=== PATIENT | male | born 1940 | race Caucasian/White ===

== ENCOUNTER 2017-09-05 17:39 | Observation (INO) | payer MEDICARE, OTHER ==
[~2017-09-05] VITALS: Ht 186.7 cm; Wt 90.0 kg
[~2017-09-05 17:39] MED LIST: ALAV10TA10 PO; ALPR0.5T99 PO; AMIO200T PO; ASPI81 PO; EZET10 PO; FERR324T4 PO; FLON0.053; LORT5TAB PO; METO50TA PO; NYST100024 EX; RANI150 PO; TRIA.1%T MT
[2017-09-05 17:45] VITALS: BP 156/89; PULSE 79; RESP 18; TEMP 97.5; O2SAT 98
[2017-09-05 18:02] VITALS: BP 143/78; PULSE 65; RESP 16; O2SAT 98
--- NOTE | 2017-09-05 18:13 | PD ---
HPI Chief Complaint: Chest Pain Time Seen by Provider: 17:52 Travel History International Travel<30 days: No Contact w/Intl Traveler<30days: No Traveled to known affect area: No History of Present Illness HPI This patient had some atypical chest sensations over the last couple of days. Location is left upper chest. Duration is about 30 seconds. Symptoms are not exertional. He feels a sort of tingling and mild pressure there. Symptoms resolved spontaneously with no alleviating factors. No exacerbating factors. He has history of bypass grafting. His last stress test was 5 years ago. Symptom severity was mild to moderate. He is currently symptom-free. He takes a daily aspirin and took one today. PFSH Past Medical History Arthritis: Yes (LOW BACK) Asthma: No Autoimmune Disease: No Blood Disorders: No Anxiety: Yes Depression: Yes Heart Rhythm Problems: Yes Cancer: Yes (COLORECTAL) Cardiac Catheterization: Yes (STENTS X3 IN 2003) Cardiovascular Problems: Yes (CATH/STENTS) High Cholesterol: Yes Chemotherapy: No Chest Pain: Yes Congestive Heart Failure: No COPD: No Cerebrovascular Accident: No Diabetes: No Endocrine: No GERD: Yes Genitourinary: No Hiatal Hernia: No Hypertension: Yes Immune Disorder: No Kidney Stones: No Musculoskeletal: Yes Neurologic: No Psychiatric: No Reproductive: No Respiratory: No Migraines: No Radiation Therapy: No Renal Failure: No Seizures: No Sickle Cell Disease: No Sleep Apnea: No Thyroid Disease: No Ulcer: No Past Surgical History Abdominal Surgery: No Arteriovenous Shunt: No Cardiac Surgery: No Ear Surgery: No Endocrine Surgery: No Eye Surgery: No Genitourinary Surgery: No Gynecologic Surgery: No Insulin Pump: No Oral Surgery: No Thoracic Surgery: No Other Surgery: Yes Social History Alcohol Use: No Tobacco Use: No Substance Use: No Allergies-Medications (Allergen,Severity, Reaction): Coded Allergies: lovastatin (Unverified Allergy, Severe, STATINS, 01/17/17) Reported Meds & Prescriptions Reported Meds & Active Scripts Active Reported Ferrous Sulfate 325 Mg Tab 325 Mg PO BIDPC Aspirin 81 Mg Tab 81 Mg PO DAILY Amiodarone Hcl (Amiodarone HCl) 200 Mg Tab 200 Mg PO Triamcinolone Acetonide 0.1 % Pst 0.1 % MT DAILY Nystatin 100 000 Pow 100,000 Mg EX Lopressor (Metoprolol Tartrate) 50 Mg Tab 50 Mg PO BID Zantac (Ranitidine HCl) 150 Mg Tab 150 Mg PO BID Alavert (Loratadine) 10 Mg Tab 10 Mg PO DAILY Lortab 5/500 (Acetaminophen/Hydrocodone Bitart) 5 Mg/500 Mg Tab 1 Tab PO Q4HPRN FOR PAIN Flonase (Fluticasone Propionate) 0.05 % Naspr 2 Spr NA DAILY 2 SPRAYS EACH NOSTRIL Zetia (Ezetimibe) 10 Mg Tab 10 Mg PO DAILY Xanax (Alprazolam) 0.5 Mg Tab 0.5 Mg PO TIDPRN Review of Systems General / Constitutional: No: Fever Eyes: No: Visual changes HENT: No: Headaches Cardiovascular: Positive: Chest Pain or Discomfort Respiratory: No: Shortness of Breath Gastrointestinal: No: Abdominal Pain Genitourinary: No: Dysuria Musculoskeletal: No: Pain Skin: No Rash Neurologic: No: Weakness Psychiatric: No: Depression Endocrine: No: Polydipsia Hematologic/Lymphatic: No: Easy Bruising Physical Exam Narrative GENERAL: Well-nourished, well-developed patient in no apparent distress. SKIN: Focused skin assessment reveals no rash and nodules. Skin is Warm and dry. HEAD: Atraumatic. Normocephalic. EYES: Pupils equal and round. No scleral icterus. No injection or drainage. ENT: No nasal bleeding or discharge. Mucous membranes pink and moist. NECK: Trachea midline. No JVD. CARDIOVASCULAR: Regular rate and rhythm. No murmur appreciated. RESPIRATORY: No accessory muscle use. Clear to auscultation. Breath sounds equal bilaterally. GASTROINTESTINAL: Abdomen soft, non-tender, nondistended. Hepatic and splenic margins not palpable. MUSCULOSKELETAL: No obvious deformities. No clubbing. No cyanosis. No edema. NEUROLOGICAL: Awake and alert. No obvious cranial nerve deficits. Motor grossly within normal limits. Normal speech. PSYCHIATRIC: Appropriate mood and affect; insight and judgment normal. Data Data Last Documented VS Vital Signs Date Time Temp Pulse Resp B/P (MAP) Pulse Ox O2 Delivery O2 Flow Rate FiO2 09/05/17 18:02 79 98 Nasal Cannula 09/05/17 18:02 16 143/78 (99) 09/05/17 17:45 97.5 Orders Orders Electrocardiogram (09/05/17 18:07) Basic Metabolic Panel (Bmp) (09/05/17 18:07) Ckmb (Isoenzyme) Profile (09/05/17 18:07) Complete Blood Count With Diff (09/05/17 18:07) Prothrombin Time / Inr (Pt) (09/05/17 18:07) Act Partial Throm Time (Ptt) (09/05/17 18:07) Troponin I (09/05/17 18:07) Chest, Single Ap (09/05/17 18:07) Ecg Monitoring (09/05/17 18:07) Iv Access Insert/Monitor (09/05/17 18:07) Oximetry (09/05/17 18:07) Sodium Chloride 0.9% Flush (Ns Flush) (09/05/17 18:15) Labs Laboratory Tests Test 09/05/17 18:49 MDM Medical Decision Making Medical Screen Exam Complete: Yes Emergency Medical Condition: Yes Medical Record Reviewed: Yes Differential Diagnosis Angina, ACS, musculoskeletal pain Narrative Course I have reviewed the patient's electronic medical record. I have ordered a chest pain workup. Everything is pending at my shift end and the case will be checked out to evening physician to assist with disposition. Christian Denney MD Sep 05, 2017 18:13
[2017-09-05] MEDS ORDERED: SODIUM CHLORIDE 0.9% FLUSH 10 ML FLUSH IVF PRN (18:15)
[2017-09-05 18:58] LABS: AUTOMATED NEUTROPHIL # 3.9 TH/MM3 (1.8-7.7); BASOPHIL % 0.6 % (0.0-2.0); EOSINOPHIL # 0.2 TH/MM3 (0-0.4); EOSINOPHIL % 2.7 % (0.0-4.0); HEMOGLOBIN 13.5 GM/DL (13.0-17.0); LYMPH % 24.8 % (9.0-44.0); LYMPHOCYTE # 1.5 TH/MM3 (1.0-4.8); MEAN CELL VOLUME 89.1 FL (80.0-100.0); MEAN CORPUSCULAR HEMOGLOBIN 30.9 PG (27.0-34.0); MEAN CORPUSCULAR HGB CONC 34.6 % (32.0-36.0); MEAN PLATELET VOLUME 8.4 FL (7.0-11.0); MONO % 7.5 % (0.0-8.0); MONOCYTE # 0.5 TH/MM3 (0-0.9); NEUT % 64.4 % (16.0-70.0); PLATELET COUNT 160 TH/MM3 (150-450); RED BLOOD COUNT 4.37 MIL/MM3 (4.50-5.90); RED CELL DISTRIBUTION WIDTH 13.3 % (11.6-17.2); WHITE BLOOD COUNT 6.1 TH/MM3 (4.0-11.0)
[2017-09-05] MEDS ORDERED: LISI-519 PO (19:00)
[2017-09-05] MEDS ORDERED: ALPR0.5T3 PO (19:00)
[2017-09-05] MEDS ORDERED: OMEP20TA93 PO (19:00)
[2017-09-05] MEDS ORDERED: METO-426 PO (19:00)
[2017-09-05] MEDS ORDERED: NEOM1SOL7 LEFT EAR (19:00)
[2017-09-05] MEDS ORDERED: VIAG25TA PO (19:00)
[2017-09-05] MEDS ORDERED: FLUO-1 PO (19:00)
[2017-09-05] MEDS ORDERED: CARB6.5S5 EACH EAR (19:00)
[2017-09-05] MEDS ORDERED: ASPI-516 CHEW (19:01)
--- NOTE | 2017-09-05 19:04 | PD ---
Data Data Last Documented VS Vital Signs Date Time Temp Pulse Resp B/P (MAP) Pulse Ox O2 Delivery O2 Flow Rate FiO2 09/05/17 19:25 98.4 68 13 121/85 (97) 96 Room Air Orders Orders Electrocardiogram (09/05/17 18:07) Basic Metabolic Panel (Bmp) (09/05/17 18:07) Ckmb (Isoenzyme) Profile (09/05/17 18:07) Complete Blood Count With Diff (09/05/17 18:07) Prothrombin Time / Inr (Pt) (09/05/17 18:07) Act Partial Throm Time (Ptt) (09/05/17 18:07) Troponin I (09/05/17 18:07) Chest, Single Ap (09/05/17 18:07) Ecg Monitoring (09/05/17 18:07) Iv Access Insert/Monitor (09/05/17 18:07) Oximetry (09/05/17 18:07) Sodium Chloride 0.9% Flush (Ns Flush) (09/05/17 18:15) Nitroglycerin 2% Oint (Nitroglycerin 2% (09/05/17 19:15) Admit Order (Ed Use Only) (09/05/17 20:09) Labs Laboratory Tests Test 09/05/17 18:49 White Blood Count 6.1 TH/MM3 Red Blood Count 4.37 MIL/MM3 Hemoglobin 13.5 GM/DL Hematocrit 39.0 % Mean Corpuscular Volume 89.1 FL Mean Corpuscular Hemoglobin 30.9 PG Mean Corpuscular Hemoglobin Concent 34.6 % Red Cell Distribution Width 13.3 % Platelet Count 160 TH/MM3 Mean Platelet Volume 8.4 FL Neutrophils (%) (Auto) 64.4 % Lymphocytes (%) (Auto) 24.8 % Monocytes (%) (Auto) 7.5 % Eosinophils (%) (Auto) 2.7 % Basophils (%) (Auto) 0.6 % Neutrophils # (Auto) 3.9 TH/MM3 Lymphocytes # (Auto) 1.5 TH/MM3 Monocytes # (Auto) 0.5 TH/MM3 Eosinophils # (Auto) 0.2 TH/MM3 Basophils # (Auto) 0.0 TH/MM3 CBC Comment DIFF FINAL Differential Comment Prothrombin Time 10.1 SEC Prothromb Time International Ratio 1.0 RATIO Activated Partial Thromboplast Time 27.2 SEC Blood Urea Nitrogen 9 MG/DL Creatinine 1.18 MG/DL Random Glucose 92 MG/DL Calcium Level 8.6 MG/DL Sodium Level 140 MEQ/L Potassium Level 4.2 MEQ/L Chloride Level 107 MEQ/L Carbon Dioxide Level 27.5 MEQ/L Anion Gap 6 MEQ/L Estimat Glomerular Filtration Rate 60 ML/MIN Total Creatine Kinase 73 U/L Troponin I LESS THAN 0.02 NG/ML [facility] Medical Record Reviewed: Yes Supervised Visit with CONSTANTINO: No Interpretation(s) Last Impressions Chest X-Ray 09/05/17 011 Signed Impressions: Service Date/Time: Tuesday, September 05, 2017 18:42 - CONCLUSION: 1. No acute findings. Minimal basilar scarring. Postoperative CABG. Silvino Felipe MD Narrative Course During the course of the patient's emergency department visit, the patient's history, examination, and differential diagnosis were reviewed with the patient. The patient was placed on a quality assurance monitor chassis with oximetry and frequent blood pressure monitoring. The patient had IV access obtained and blood work sent for analysis. The patient was initially seen by Dr. nohelia Nevarez. Please see his complete history and physical. The patient's case was checked out to me at the conclusion of his shift. He anticipated that the patient would be a candidate for admission to the chest pain center. The patient was initially provided nitroglycerin 1 inch to the chest wall. The patient's laboratory studies were reviewed and remarkable for a white count of 6.1, hemoglobin 13.5, platelets 160 with a normal differential, basic metabolic profile is unremarkable, initial set of cardiac enzymes are negative. PT PTT within normal limits. Radiology studies were reviewed and remarkable for a chest x-ray that shows no acute findings, minimal basilar scarring, postop CABG. The patient's results were discussed with the patient, including the plan of care. I explained that further testing and/ or monitoring is indicated based on the patient's history, examination, and/ or laboratory findings. Therefore, I recommended admission for additional evaluation. The patient expressed understanding and was agreeable with this plan. The patient was admitted to the hospital in stable condition and sent to a bed under the care of the chest pain center. Diagnosis Primary Impression: Chest pain, rule out acute myocardial infarction Admitting Information Admitting Physician Requests: Katelyn Diaz MD Sep 05, 2017 19:04
[2017-09-05 19:15] LABS: BICARBONATE 27.5 MEQ/L (21.0-32.0); BLOOD UREA NITROGEN 9 MG/DL (7-18); CALCIUM 8.6 MG/DL (8.5-10.1); CHLORIDE 107 MEQ/L (98-107); CREATININE 1.18 MG/DL (0.60-1.30); GLOMERULAR FILTRATION RATE 60 ML/MIN (>89); GLUCOSE,RANDOM 92 MG/DL (74-106); PROTHROMBIN TIME - PATIENT 10.1 SEC (9.8-11.6); SODIUM (NA) 140 MEQ/L (136-145)
[2017-09-05] MEDS ORDERED: NITROGLYCERIN 2% OINT 1 GM PACKET TOPICAL ONE (19:15)
[2017-09-05 19:19] LABS: TROPONIN I LESS THAN 0.02 NG/ML (0.02-0.05)
[2017-09-05 19:25] VITALS: BP 121/85; PULSE 68; RESP 13; TEMP 98.4; O2SAT 96
--- NOTE | 2017-09-05 19:40 | RADRPT ---
EXAM DATE/TIME: 09/05/2017 18:42 [facility] COMPARISON: No previous studies available for comparison. INDICATIONS : Short of breath for several days. Patient sent to the emergency with an abnormal EKG at the [facility]. MEDICAL HISTORY : Hypercholesterolemia. Hypertension Gastroesophageal reflux disease. Colonrectal cancer. SURGICAL HISTORY : CABG. Colonrectal. ENCOUNTER: Initial ACUITY: 3 days PAIN SCORE: 0/10 LOCATION: Bilateral chest FINDINGS: A single view of the chest demonstrates the lungs to be symmetrically aerated without evidence of mas s, infiltrate or effusion. The cardiomediastinal contours are unremarkable. Postoperative CABG. Osse ous structures are intact. CONCLUSION: 1. No acute findings. Minimal basilar scarring. Postoperative CABG. Silvino Felipe MD on September 05, 2017 at 19:36 Board Certified Radiologist. This report was verified electronically.
[2017-09-05] MEDS ORDERED: ACETAMINOPHEN 500 MG CPLT PO PRN (20:45)
[2017-09-05] MEDS ORDERED: SODIUM CHLORIDE 0.9% FLUSH 10 ML FLUSH IV FLUSH PRN (20:45)
[2017-09-05] MEDS: SODIUM CHLORIDE 0.9% FLUSH 10 ML FLUSH IV FLUSH SCH (22:42)
[2017-09-05 22:48] LABS: TROPONIN I LESS THAN 0.02 NG/ML (0.02-0.05)
[2017-09-05 23:06] VITALS: BP 116/68; PULSE 71; RESP 18; TEMP 98.1; O2SAT 95
[2017-09-06 01:44] VITALS: BP 104/60; PULSE 63; RESP 15; TEMP 97.5; O2SAT 95
[2017-09-06 02:23] LABS: TROPONIN I LESS THAN 0.02 NG/ML (0.02-0.05)
[2017-09-06 04:30] VITALS: PULSE 60
[2017-09-06 05:40] VITALS: BP 114/60; PULSE 65; RESP 16; TEMP 97.6; O2SAT 94
[2017-09-06 07:16] VITALS: BP 101/58; PULSE 67; RESP 16; TEMP 97.5; O2SAT 94
--- NOTE | 2017-09-06 07:52 | HHI.HP ---
HPI Primary Care Physician [facility] Chief Complaint Chest discomfort History of Present Illness 76-year-old male with history of coronary artery disease, CABG 4, statin intolerant, HLD, and hypertension presents to the emergency room as directed by his primary care physician. Onset 3 days. Location left anterior chest. Characterized as "buzzing sensation, like a TENS unit sensation." Duration 15- 30 seconds. No chest pain/pressure/discomfort. No radiation. No associated symptoms of nausea, vomiting, or diaphoresis. No known precipitating or relieving factors. Denies similar pain in the past and not at all similar to past angina before placement of cardiac stents or open heart surgery. While at his regularly scheduled appointment yesterday, he notified his PCP of above. EKG completed in office. Reportedly EKG different from previous EKG May 2017, therefore PCP at [facility] sent him to ER for further evaluation. Since open heart surgery he has not followed with a letterpress setter. Review of Systems General: No fatigue,weakness, fever, chills, recent illness, or change in appetite. Has been in his general state of health. HEENT: No RUST, no vision changes, no nasal congestion or drainage, no dysphasia CV: As stated above. Denies ever having any chest pain, pressure, or palpitations. RESP: No SOB, cough, wheeze, or recent URI. GI: No nausea, vomiting, bowel changes, diarrhea, constipation, pain, or distention. : No dysuria, urgency, frequency EXT: No lower leg edema, no paraesthesias MS: No discomfort or change in ROM. NEURO: No difficulty with balance, LOC, motor/sensory deficits PSYCH: History of depression, reports recently placed on Fluoxetine tolerating well. No current anxiety or depression. SKIN: No rashes, no concerning lesions Past Family Social History Allergies: Coded Allergies: lovastatin (Unverified Allergy, Severe, STATINS, 01/17/17) Past Medical History Coronary artery disease, colorectal cancer, hyperlipidemia, hypertension, statin intolerant, GERD, chronic back pain, depression Past Surgical History CABG 4 (2010), cholecystectomy, hernia repair (), Colon Resection Reported Medications Reported Meds & Active Scripts Active Reported Aspirin 81 Mg Chew 81 Mg CHEW DAILY Metoprolol Tartrate 75 Mg Tab 75 Mg PO DAILY Fzgcrrgo-Bgpkypwyw-WL Otic Drops 3.5-10,000-1 Mg-Units-% Soln 4 Drop LEFT EAR QID Debrox Otic Drops (Carbamide Peroxide Otic Drops) 6.5% Soln 5-10 Drop EACH EAR BID PRN up to 4 days. Alprazolam 0.5 Mg Tab 0.5 Mg PO Q8H PRN Viagra (Sildenafil Citrate) 25 Mg Tab 25 Mg PO DAILY PRN Omeprazole 20 Mg Tab 20 Mg PO DAILY Lisinopril 5 Mg Tab 5 Mg PO DAILY Prozac (Fluoxetine HCl) 10 Mg Cap 10 Mg PO DAILY Active Ordered Medications Current Medications Medications (Trade) Dose Ordered Sig/Stacia Route Start Time Stop Time Status Last Admin (NS Flush) 2 ml UNSCH PRN IVF 09/05/17 18:15 (NS Flush) 2 ml UNSCH PRN IV FLUSH 09/05/17 20:45 (NS Flush) 2 ml BID IV FLUSH 09/05/17 21:00 09/05/17 22:42 (Tylenol) 500 mg Q4H PRN PO 09/05/17 20:45 (Aspirin) 325 mg DAILY PO 09/06/17 09:00 Social History Coronary artery disease, hypertension, and hyperlipidemia. Denies diabetes. Former smoker quitting over 20 years ago. Denies any alcohol or illegal drug use. Retired. Endorses sedentary lifestyle. Past cardiac testing No cardiac testing since CABG in 2010. Does not follow with a letterpress setter. 12/04/10 CABGX4 (Dr. Wade) STRAUSS to LAD, saphenous vein graft to OM, saphenous vein graft to obtuse, saphenous vein graft to RCA 03/27/10 Lexiscan-Fixed decreased activity inferoseptal region with mild hypokinesis. No signs of reversibility to suggest ischemia on current exam. EF 60%. 2004 Cardiac catheterization x3 Cardiac stents-one placed diagonal, second placed in LAD, and 3rd unknown ([facility]) 09/04/17 Lipid Panel (reviewed from paperwork provided with patient) LDL-172, HDL 53, Triglycerides 127, Total cholesterol 237. Physical Exam Vital Signs Vital Signs Date Time Temp Pulse Resp B/P (MAP) Pulse Ox O2 Delivery O2 Flow Rate FiO2 09/06/17 07:16 97.5 67 16 101/58 (72) 94 09/06/17 05:40 97.6 65 16 114/60 (78) 94 09/06/17 04:30 60 09/06/17 03:12 21 09/06/17 01:44 97.5 63 15 104/60 (75) 95 09/05/17 23:06 98.1 71 18 116/68 (84) 95 09/05/17 19:25 98.4 68 13 121/85 (97) 96 Room Air 09/05/17 18:02 79 98 Nasal Cannula 09/05/17 18:02 65 16 143/78 (99) 98 Room Air 09/05/17 17:45 97.5 79 18 156/89 (111) 98 Physical Exam GENERAL: Alert WN, WD, NAD, pleasant, male HEAD: NC, AT EYES: Sclera clear, conjunctiva without injection ENT: Mucous membranes pink and moist NECK: Supple, no masses, trachea midline CV: RRR, without murmur, rub, gallop, no JVD, S1-S2 no S3-S4. No carotid bruits. RESP: Clear lungs throughout bilateral, no crackles, wheeze, rhonchi, symmetrical chest rise, nonlabored, able to speak in full sentences ABD: Soft, NT, ND, no masses, positive bowel tones EXT: Pulses +2-4, no dependent edema MS: Normal tone -4 extremities, no obvious deformities, full range of motion NEURO: CN II through CN XII grossly intact, motor strength 5/5 PSYCH: A+O -3, pleasant affect, appropriate speech, mood, insight and judgment SKIN: Normal turgor, normal texture, no lesions, no rashes, brisk cap refill, even hair distribution Laboratory Laboratory Tests Test 09/05/17 18:49 09/05/17 21:40 09/06/17 01:35 White Blood Count 6.1 Red Blood Count 4.37 Hemoglobin 13.5 Hematocrit 39.0 Mean Corpuscular Volume 89.1 Mean Corpuscular Hemoglobin 30.9 Mean Corpuscular Hemoglobin Concent 34.6 Red Cell Distribution Width 13.3 Platelet Count 160 Mean Platelet Volume 8.4 Neutrophils (%) (Auto) 64.4 Lymphocytes (%) (Auto) 24.8 Monocytes (%) (Auto) 7.5 Eosinophils (%) (Auto) 2.7 Basophils (%) (Auto) 0.6 Neutrophils # (Auto) 3.9 Lymphocytes # (Auto) 1.5 Monocytes # (Auto) 0.5 Eosinophils # (Auto) 0.2 Basophils # (Auto) 0.0 CBC Comment DIFF FINAL Differential Comment Prothrombin Time 10.1 Prothromb Time International Ratio 1.0 Activated Partial Thromboplast Time 27.2 Blood Urea Nitrogen 9 Creatinine 1.18 Random Glucose 92 Calcium Level 8.6 Sodium Level 140 Potassium Level 4.2 Chloride Level 107 Carbon Dioxide Level 27.5 Anion Gap 6 Estimat Glomerular Filtration Rate 60 Total Creatine Kinase 73 67 61 Troponin I LESS THAN 0.02 LESS THAN 0.02 LESS THAN 0.02 Result Diagram: 09/05/179 09/05/17 184 Imaging Last 48 hours Impressions Chest X-Ray 09/05/17 180 Signed Impressions: Service Date/Time: Tuesday, September 05, 2017 18:42 - CONCLUSION: 1. No acute findings. Minimal basilar scarring. Postoperative CABG. Silvino Felipe MD Course EKG Normal sinus rhythm, minimal ST depression anterolateral leads, T wave inversions Caprini VTE Risk Assessment Caprini VTE Risk Assessment: Mod/High Risk (score >= 2) Caprini Risk Assessment Model Point Value = 1 Point Value = 2 Point Value = 3 Point Value = 5 Age 41-60 Minor surgery BMI > 25 kg/m2 Swollen legs Varicose veins or History of unexplained or recurrent spontaneous Oral contraceptives or hormone replacement Sepsis (< 1 month) Serious lung disease, including pneumonia (< 1 month) Abnormal pulmonary function Acute myocardial infarction Congestive heart failure (< 1 month) History of inflammatory bowel disease Medical patient at bed rest Age 61-74 Arthroscopic surgery Major open surgery (> 45 min) Laparoscopic surgery (> 45 min) Malignancy Confined to bed (> 72 hours) Immobilizing plaster cast Central venous access Age >= 75 History of VTE Family history of VTE Factor V Leiden Prothrombin [id number] Lupus anticoagulant Anticardiolipin antibodies Elevated serum homocysteine Heparin-induced thrombocytopenia Other congenital or acquired thrombophilia Stroke (< 1 month) Elective arthroplasty Hip, pelvis, or leg fracture Acute spinal cord injury (< 1 month) Prophylaxis Regimen Total Risk Factor Score Risk Level Prophylaxis Regimen 0-1 Low Early ambulation 2 Moderate Order ONE of the following: *Sequential Compression Device (SCD) *Heparin 5000 units SQ BID 3-4 Higher Order ONE of the following medications: *Heparin 5000 units SQ TID *Enoxaparin/Lovenox 40 mg SQ daily (WT < 150 kg, CrCl > 30 mL/min) *Enoxaparin/Lovenox 30 mg SQ daily (WT < 150 kg, CrCl > 10-29 mL/min) *Enoxaparin/Lovenox 30 mg SQ BID (WT < 150 kg, CrCl > 30 mL/min) AND/OR *Sequential Compression Device (SCD) 5 or more Highest Order ONE of the following medications: *Heparin 5000 units SQ TID (Preferred with Epidurals) *Enoxaparin/Lovenox 40 mg SQ daily (WT < 150 kg, CrCl > 30 mL/min) *Enoxaparin/Lovenox 30 mg SQ daily (WT < 150 kg, CrCl > 10-29 mL/min) *Enoxaparin/Lovenox 30 mg SQ BID (WT < 150 kg, CrCl > 30 mL/min) AND *Sequential Compression Device (SCD) Assessment and Plan Assessment and Plan #1 Atypical chest pain-minute chest pains here. Ruled out with recent EKGs, cardiac enzymes, and monitored on telemetry overnight. Seen and evaluated by Dr. Joao Vincent. Proceed with exercise nuclear stress test this a.m. If unremarkable, plans to be discharged home with follow-up with PCP. Patient agreeable to plan of care. #2 History of CAD-continue Zetia, aspirin, and metoprolol (holding am dosing until after cardiac testing). Strongly encouraged him to establish with a letterpress setter for yearly checkups and to discuss this with his PCP. May aware of other cholesterol medications, such as PCSK9, available due to his statin intolerance. Renee Calderon Sep 06, 2017 07:52
[2017-09-06] MEDS ORDERED: ASPIRIN 325 MG TAB PO SCH (09:00)
[2017-09-06] MEDS ORDERED: FLUoxetine HCL 10 MG CAP PO SCH (09:15)
[2017-09-06] MEDS ORDERED: PANTOPRAZOLE SOD 20 MG DELAYED RELEASE TAB PO SCH (09:15)
[2017-09-06 09:40] VITALS: PULSE 64
[2017-09-06] MEDS: SODIUM CHLORIDE 0.9% FLUSH 10 ML FLUSH IV FLUSH SCH (09:42)
[2017-09-06] MEDS ORDERED: REGADENOSON INJ 0.4 MG/5 ML SYR ONE (11:08)
--- NOTE | 2017-09-06 12:22 | RADRPT ---
EXAM DATE/TIME: 09/06/2017 10:45 [facility] COMPARISON: No previous studies available for comparison. INDICATIONS : Left chest pain. Angina. Coronary artery disease. DOSE: 26.2 mCi Tc99m Myoview at stress. 8.2 mCi Tc99m Myoview at rest. 0.4 mg Lexiscan STRESS SYMPTOMS: None noted. EJECTION FRACTION: 63% MEDICAL HISTORY : Hypertension. Colorectal cancer. SURGICAL HISTORY : Inguinal hernia repair. CABG Coronary artery stent. ENCOUNTER: Initial ACUITY: 1 day PAIN SCALE: 3/10 LOCATION: Left chest TECHNIQUE: The patient underwent pharmacologic stress with infusion of prescribed dose. Continuous ECG tracing was monitored during stress. Gated SPECT imaging was performed after stress and conventional SPECT i maging was performed at rest. The examination was performed on a SPECT/CT scanner, both attenuation and non-corrected datasets were reviewed. FINDINGS: DISTRIBUTION: The maximum perfused segment at stress is in the basal anterior wall. PERFUSION STUDY: The pattern of perfusion at stress is within normal limits with regional variations perfusion within 25%. No evidence of redistribution. Summed stress score is zero.. GATED STUDY: There is intact wall motion and thickening without hypokinetic or dyskinetic segments. CONCLUSION: 1. No evidence of stress-induced ischemia. 2. Intact wall motion was 63% ejection fraction. RISK CATEGORY: Low (<1% Annual Mortality Rate) Case Bryan MD on September 06, 2017 at 12:19 Board Certified Radiologist. This report was verified electronically.
[2017-09-06] MEDS ORDERED: LISINOPRIL 5 MG TAB PO SCH (12:30)
[2017-09-06] MEDS ORDERED: METOPROLOL TARTRATE 25 MG TAB PO SCH (12:30)
--- NOTE | 2017-09-06 12:35 | HHI.DCPOC ---
Discharge Care Plan Diagnosis: (1) Atypical chest pain (2) Hx of coronary artery disease Goals to Promote Your Health * To prevent worsening of your condition and complications * To maintain your health at the optimal level Directions to Meet Your Goals Take your medications as prescribed Follow your dietary instruction Follow activity as directed Keep your appointments as scheduled Take your immunizations and boosters as scheduled If your symptoms worsen call your PCP, if no PCP go to Urgent Care Center or Emergency Room Smoking is Dangerous to Your Health. Avoid second hand smoke Call the 24-hour hour crisis hotline for domestic abuse at Renee Calderon Sep 06, 2017 12:35
--- NOTE | 2017-09-06 12:49 | EKG ---
Date Performed: 09/05/2017 Time Performed: 23:13:30 PTAGE: 76 years EKG: Sinus rhythm ST DEVIATION AND MODERATE T-WAVE ABNORMALITY, CONSIDER ANTEROLATERAL ISCHEMIA ABNORMAL ECG PREVIOUS TRACING : 09/05/2017 18.11 Since previous tracing, no significant change noted DOCTOR: Joao Vincent Interpretating Date/Time 09/06/2017 12:47:27
--- NOTE | 2017-09-06 12:50 | EKG ---
Date Performed: 09/05/2017 Time Performed: 18:11:28 PTAGE: 76 years EKG: Sinus rhythm ST DEVIATION AND MODERATE T-WAVE ABNORMALITY, CONSIDER ANTERIOR ISCHEMIA ABNORMAL ECG NO PREVIOUS TRACING Compared to previous tracing of 12/08/2010, ST-T changes are new DOCTOR: Joao Vincent Interpretating Date/Time 09/06/2017 12:49:04
--- NOTE | 2017-09-06 12:51 | EKG ---
Date Performed: 09/06/2017 Time Performed: 01:54:46 PTAGE: 76 years EKG: SINUS BRADYCARDIA ST DEVIATION AND MODERATE T-WAVE ABNORMALITY, CONSIDER ANTERIOR ISCHEMIA ABNORMAL ECG PREVIOUS TRACING : 09/05/2017 23.13 Since previous tracing, no significant change noted DOCTOR: Joao Vincent Interpretating Date/Time 09/06/2017 12:49:50
--- NOTE | 2017-09-06 12:54 | TR ---
Date Performed: 09/06/2017 Time Performed: 11:05:26 DOCTOR: Joao Vincent DRUG LIST: CLINICAL HISTORY: ANGINA REASON FOR TEST: Angina REASON FOR ENDING: OBSERVATION: CONCLUSION: COMMENTS: Lexiscan stress test was performed under standard four minute protocol. Radionuclide was injected one minute prior to ending the test. ST-T changes noted at rest remained unchanged throu ghout infusion. Nuclear imaging and interpretation are pending.
== END 2017-09-06 14:09 | disposition home or self-care (01) ==
LOC: NEPC 17:39 → NEDA 20:11 → NEPHCDU 21:44
PROVIDERS: ADMIT Internal Medicine Interventional Cardiology; ATTEND Internal Medicine Interventional Cardiology
DX: R07.89 Other chest pain (principal); R06.02 Shortness of breath; R00.1 Bradycardia, unspecified; R94.31 Abnormal electrocardiogram [ECG] [EKG]; R20.2 Paresthesia of skin; I25.10 Atherosclerotic heart disease of native coronary artery without angina pectoris; I10 Essential (primary) hypertension; E78.00 Pure hypercholesterolemia, unspecified; K21.9 Gastro-esophageal reflux disease without esophagitis; M54.9 Dorsalgia, unspecified; G89.29 Other chronic pain; F41.9 Anxiety disorder, unspecified; F32.9 Major depressive disorder, single episode, unspecified; M47.9 Spondylosis, unspecified; Z95.1 Presence of aortocoronary bypass graft; Z79.899 Other long term (current) drug therapy; Z79.82 Long term (current) use of aspirin; Z87.891 Personal history of nicotine dependence; Z85.048 Personal history of other malignant neoplasm of rectum, rectosigmoid junction, and anus
CPT/HCPCS: 71045; 78452; 80048; 82550; 84484; 85025; 85610; 85730; 93005; 93017; 99285; A9502; G0378; J2785

== ENCOUNTER 2017-10-06 11:15 | Emergency (ER) | payer OTHER ==
[~2017-10-06] VITALS: Ht 188 cm; Wt 91.0 kg
[~2017-10-06 11:15] MED LIST changes: -ALAV10TA10 PO; +ALPR0.5T3 PO; -ALPR0.5T99 PO; -AMIO200T PO; +ASPI-516 CHEW; -ASPI81 PO; +CARB6.5S5 EACH EAR; -EZET10 PO; -FERR324T4 PO; -FLON0.053; +FLUO-1 PO; +LISI-519 PO; -LORT5TAB PO; +METO-426 PO; -METO50TA PO; +NEOM1SOL7 LEFT EAR; -NYST100024 EX; +OMEP20TA93 PO; -RANI150 PO; -TRIA.1%T MT; +VIAG25TA PO
[2017-10-06 11:20] VITALS: BP 162/72; PULSE 79; RESP 17; TEMP 97.5; O2SAT 97
[2017-10-06] MEDS ORDERED: SODIUM CHLOR 0.9% 1000 ML INJ 1,000 ML IV SCH (11:31)
[2017-10-06 11:46] LABS: AUTOMATED NEUTROPHIL # 7.7 TH/MM3 (1.8-7.7); BASOPHIL % 0.4 % (0.0-2.0); EOSINOPHIL # 0.1 TH/MM3 (0-0.4); EOSINOPHIL % 1.1 % (0.0-4.0); HEMOGLOBIN 14.2 GM/DL (13.0-17.0); LYMPH % 12.8 % (9.0-44.0); LYMPHOCYTE # 1.3 TH/MM3 (1.0-4.8); MEAN CORPUSCULAR HEMOGLOBIN 31.2 PG (27.0-34.0); MEAN CORPUSCULAR HGB CONC 34.6 % (32.0-36.0); MEAN PLATELET VOLUME 7.9 FL (7.0-11.0); MONO % 7.3 % (0.0-8.0); MONOCYTE # 0.7 TH/MM3 (0-0.9); NEUT % 78.4 % (16.0-70.0); PLATELET COUNT 168 TH/MM3 (150-450); RED BLOOD COUNT 4.55 MIL/MM3 (4.50-5.90); RED CELL DISTRIBUTION WIDTH 13.1 % (11.6-17.2); WHITE BLOOD COUNT 9.8 TH/MM3 (4.0-11.0)
--- NOTE | 2017-10-06 12:00 | PD ---
HPI Chief Complaint: Abdominal Pain Time Seen by Provider: 11:25 Travel History International Travel<30 days: No Contact w/Intl Traveler<30days: No Traveled to known affect area: No History of Present Illness HPI 77-year-old male that presents to the ED for evaluation of lower abdominal cramping for the past 48 hours. Per patient has had episodes like this in the past when he was diagnosed with diverticulitis. He has had about 6 episodes of this in the past. Per patient he had surgery for colon surgery to remove a tumor years ago. 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 He denies any urinary or bowel movement issues. He denies any chest pain or shortness of breath. No fevers chills or sweats. States that the pain currently is 2 out of 10 and feels more like a spasm. Comes on the lower abdomen and feels very similar to his previous diverticulosis. Pain per patient when he comes gets to be severe 8 out of 10 but then goes away. No blood in stool. No trauma. No nausea or vomiting. PFSH Past Medical History Arthritis: Yes (LOW BACK) Asthma: No Autoimmune Disease: No Blood Disorders: No Anxiety: Yes Depression: Yes Heart Rhythm Problems: Yes Cancer: Yes (COLORECTAL) Cardiac Catheterization: Yes (STENTS X3 IN 2003) Cardiovascular Problems: Yes (CATH/STENTS) High Cholesterol: Yes Chemotherapy: No Chest Pain: Yes Congestive Heart Failure: No COPD: No Cerebrovascular Accident: No Diabetes: No Diminished Hearing: Yes Endocrine: No GERD: Yes Genitourinary: No Hiatal Hernia: No Hypertension: Yes Immune Disorder: No Kidney Stones: No Musculoskeletal: Yes Neurologic: No Psychiatric: No Reproductive: No Respiratory: No Migraines: No Radiation Therapy: No Renal Failure: No Seizures: No Sickle Cell Disease: No Sleep Apnea: No Thyroid Disease: No Ulcer: No Tetanus Vaccination: < 5 Years Past Surgical History Abdominal Surgery: No Appendectomy: Yes Arteriovenous Shunt: No Cardiac Surgery: No Coronary Stent: Yes Ear Surgery: No Endocrine Surgery: No Eye Surgery: No Genitourinary Surgery: No Gynecologic Surgery: No Insulin Pump: No Oral Surgery: No Thoracic Surgery: Yes (CABG X5) Other Surgery: Yes (HERNIA SURGERY 1966 COLORECTAL SURGERY 2010) Social History Alcohol Use: No Tobacco Use: No Substance Use: No Allergies-Medications (Allergen,Severity, Reaction): Coded Allergies: lovastatin (Unverified Allergy, Severe, STATINS, 5/4/18) Reported Meds & Prescriptions Reported Meds & Active Scripts Active Flagyl (Metronidazole) 500 Mg Tab 500 Mg PO BID 14 Days Cipro (Ciprofloxacin HCl) 500 Mg Tab 500 Mg PO BID 14 Days Reported Aspirin 81 Mg Chew 81 Mg CHEW DAILY Metoprolol Tartrate 75 Mg Tab 75 Mg PO DAILY Abnmdfis-Elqwceuqr-GO Otic Drops 3.5-10,000-1 Mg-Units-% Soln 4 Drop LEFT EAR QID Debrox Otic Drops (Carbamide Peroxide Otic Drops) 6.5% Soln 5-10 Drop EACH EAR BID PRN up to 4 days. Alprazolam 0.5 Mg Tab 0.5 Mg PO Q8H PRN Viagra (Sildenafil Citrate) 25 Mg Tab 25 Mg PO DAILY PRN Omeprazole 20 Mg Tab 20 Mg PO DAILY Lisinopril 5 Mg Tab 5 Mg PO DAILY Prozac (Fluoxetine HCl) 10 Mg Cap 10 Mg PO DAILY Review of Systems Except as stated in HPI: all other systems reviewed are Neg Physical Exam Narrative GENERAL: SKIN: Warm and dry. HEAD: Atraumatic. Normocephalic. EYES: Pupils equal and round. No scleral icterus. No injection or drainage. ENT: No nasal bleeding or discharge. Mucous membranes pink and moist. Tongue is midline. No uvula deviation. NECK: Trachea midline. No JVD. CARDIOVASCULAR: Regular rate and rhythm. No murmurs, S3, S4. RESPIRATORY: No accessory muscle use. Clear to auscultation. Breath sounds equal bilaterally. GASTROINTESTINAL: Abdomen soft, tender to touch in the lower abdomen, nondistended. Hepatic and splenic margins not palpable. MUSCULOSKELETAL: Extremities without clubbing, cyanosis, or edema. No obvious deformities. Full range of motion of the upper and lower extremities bilaterally. 2+ pulses bilaterally. NEUROLOGICAL: Awake and alert. No obvious cranial nerve deficits. Motor grossly within normal limits. Five out of 5 muscle strength in the arms and legs. Normal speech. PSYCHIATRIC: Appropriate mood and affect; insight and judgment normal. Data Data Last Documented VS Vital Signs Date Time Temp Pulse Resp B/P (MAP) Pulse Ox O2 Delivery O2 Flow Rate FiO2 10/06/17 11:20 97.5 79 17 162/72 (102) 97 Orders Orders Complete Blood Count With Diff (10/06/17 11:31) Comprehensive Metabolic Panel (10/06/17 11:31) Lipase (10/06/17 11:31) Lactic Acid (10/06/17 11:31) Urinalysis - C+S If Indicated (10/06/17 11:31) Ct Abd/Pel W Iv Contrast(Rout) (10/06/17 11:31) Iv Access Insert/Monitor (10/06/17 11:31) Sodium Chlor 0.9% 1000 Ml Inj (Ns 1000 M (10/06/17 11:31) Iohexol 350 Inj (Omnipaque 350 Inj) (10/06/17 13:03) Metronidazole 500 Mg Inj (Flagyl 500 Mg (10/06/17 14:00) Ciprofloxacin 400 Mg Premix (Cipro 400 M (10/06/17 14:00) Ciprofloxacin (Cipro) (10/06/17 14:15) Metronidazole (Flagyl) (10/06/17 14:15) Ed Discharge Order (10/06/17 14:06) Labs Laboratory Tests Test 10/06/17 11:30 10/06/17 12:15 White Blood Count 9.8 TH/MM3 Red Blood Count 4.55 MIL/MM3 Hemoglobin 14.2 GM/DL Hematocrit 41.0 % Mean Corpuscular Volume 90.0 FL Mean Corpuscular Hemoglobin 31.2 PG Mean Corpuscular Hemoglobin Concent 34.6 % Red Cell Distribution Width 13.1 % Platelet Count 168 TH/MM3 Mean Platelet Volume 7.9 FL Neutrophils (%) (Auto) 78.4 % Lymphocytes (%) (Auto) 12.8 % Monocytes (%) (Auto) 7.3 % Eosinophils (%) (Auto) 1.1 % Basophils (%) (Auto) 0.4 % Neutrophils # (Auto) 7.7 TH/MM3 Lymphocytes # (Auto) 1.3 TH/MM3 Monocytes # (Auto) 0.7 TH/MM3 Eosinophils # (Auto) 0.1 TH/MM3 Basophils # (Auto) 0.0 TH/MM3 CBC Comment DIFF FINAL Differential Comment Blood Urea Nitrogen 7 MG/DL Creatinine 1.10 MG/DL Random Glucose 100 MG/DL Total Protein 7.1 GM/DL Albumin 3.8 GM/DL Calcium Level 9.1 MG/DL Alkaline Phosphatase 73 U/L Aspartate Amino Transf (AST/SGOT) 22 U/L Alanine Aminotransferase (ALT/SGPT) 17 U/L Total Bilirubin 0.7 MG/DL Sodium Level 140 MEQ/L Potassium Level 4.4 MEQ/L Chloride Level 104 MEQ/L Carbon Dioxide Level 28.0 MEQ/L Anion Gap 8 MEQ/L Estimat Glomerular Filtration Rate 65 ML/MIN Lactic Acid Level 1.4 mmol/L Lipase 123 U/L Urine Color YELLOW Urine Turbidity CLEAR Urine pH 7.5 Urine Specific [place] 1.005 Urine Protein NEG mg/dL Urine Glucose (UA) NEG mg/dL Urine Ketones NEG mg/dL Urine Occult Blood TRACE Urine Nitrite NEG Urine Bilirubin NEG Urine Urobilinogen 0.2 MG/DL Urine Leukocyte Esterase NEG Urine RBC LESS THAN 1 /hpf Microscopic Urinalysis Comment CULT NOT INDICATED MDM Medical Decision Making Medical Screen Exam Complete: Yes Emergency Medical Condition: Yes Medical Record Reviewed: Yes Interpretation(s) CBC & BMP Diagram 10/06/17 11:30 Total Protein 7.1, Albumin 3.8, Calcium Level 9.1, Alkaline Phosphatase 73, Aspartate Amino Transf (AST/SGOT) 22, Alanine Aminotransferase (ALT/SGPT) 17, Total Bilirubin 0.7 lactic acid WNL UA negative CT shows sigmoid diverticulitis. Differential Diagnosis Colitis versus diverticulitis versus acute on chronic pain versus gastroenteritis Narrative Course 77-year-old male that presents to the ED for evaluation of lower abdominal pain. Patient was properly examined and was found to have signs and symptoms which appear to be consistent with possible diverticulitis. Labs and imaging order. Labs and imaging showed what appears to be sigmoid diverticulitis. Otherwise blood work was essentially unremarkable. Patient was reassured. At this time I think patient is okay to trial outpatient treatment. Patient was given first dose of Flagyl and Cipro here. Given prescriptions for this. Told to follow closely with PCP. Drink plenty of fluids. See ED if worsening symptoms. My attending Dr. Jones evaluated patient herself and agrees with plan. Diagnosis Primary Impression: Sigmoid diverticulitis Patient Instructions: General Instructions Additional Instructions: Take medication as prescribed. Drink plenty of fluids. Follow-up with PCP. See ED if worsening symptoms. Med/Other Pt SpecificInfo: Prescription(s) given Scripts Metronidazole (Flagyl) 500 Mg Tab 500 MG PO BID for Infection for 14 Days, #28 TAB 0 Refills Prov: Uzma Dawson MD 10/06/17 Ciprofloxacin (Cipro) 500 Mg Tab 500 MG PO BID for Infection for 14 Days, #28 TAB 0 Refills Prov: Uzma Dawson MD 10/06/17 Disposition: 01 DISCHARGE HOME Condition: Stable Robert Pettit October 06, 2017 12:00
[2017-10-06 12:03] LABS: ALBUMIN 3.8 GM/DL (3.4-5.0); AST (GOT) 22 U/L (15-37); BLOOD UREA NITROGEN 7 MG/DL (7-18); CALCIUM 9.1 MG/DL (8.5-10.1); CHLORIDE 104 MEQ/L (98-107); GLOMERULAR FILTRATION RATE 65 ML/MIN (>89); GLUCOSE,RANDOM 100 MG/DL (74-106); SODIUM (NA) 140 MEQ/L (136-145)
[2017-10-06 12:04] LABS: ALT (GPT) 17 U/L (12-78)
[2017-10-06 12:06] LABS: ALKALINE PHOSPHATASE 73 U/L (45-117); TOTAL BILIRUBIN ADULT 0.7 MG/DL (0.2-1.0); TOTAL PROTEIN 7.1 GM/DL (6.4-8.2)
[2017-10-06 12:34] LABS: BILIRUBIN, URINE NEG (NEG); GLUCOSE,URINE NEG (NEG); KETONE, URINE NEG (NEG); NITRITE,URINE NEG (NEG); PH, URINE 7.5 (5.0-8.5); URINE COLOR YELLOW (YELLW/STRAW); URINE LEUKOCYTE ESTERASE NEG (NEG)
[2017-10-06 12:41] LABS: BLOOD, URINE TRACE (NEG)
[2017-10-06] MEDS ORDERED: IOHEXOL 350 MG/ML 10 ML VIAL (for RAD DIAG) IVCONTRAST ONE (13:03)
--- NOTE | 2017-10-06 13:58 | RADRPT ---
EXAM DATE/TIME: 10/06/2017 13:00 [facility] COMPARISON: No previous studies available for comparison. INDICATIONS : Severe lower abdominal pain for 2 days IV CONTRAST: 93 cc Omnipaque 350 (iohexol) IV ORAL CONTRAST: No oral contrast ingested. RADIATION DOSE: 11.32 CTDIvol (mGy) MEDICAL HISTORY : Carcinoma, colon. Diverticulitis. Gastroesophageal reflux disease. SURGICAL HISTORY : Appendectomy. CABG ENCOUNTER: Initial ACUITY: 2 days PAIN SCALE: 8/10 LOCATION: lower quadrant TECHNIQUE: Volumetric scanning of the abdomen and pelvis was performed. Using automated exposure control and ad justment of the mA and/or kV according to patient size, radiation dose was kept as low as reasonably achievable to obtain optimal diagnostic quality images. DICOM format image data is available electro nically for review and comparison. FINDINGS: LOWER LUNGS: The visualized lower lungs are clear. LIVER: Homogeneous density without lesion. There is no dilation of the biliary tree. Gallbladder is absent with clips in the gallbladder fossa. SPLEEN: Normal size without lesion. PANCREAS: Within normal limits. KIDNEYS: Normal in size and shape. There is no mass, stone or hydronephrosis. A cyst is present in the left m id kidney measuring 2.3 cm. ADRENAL GLANDS: Within normal limits. VASCULAR: There is severe atherosclerotic disease. No aneurysm is present. BOWEL/MESENTERY: The stomach and small bowel have a normal appearance. There has been prior right hemicolectomy with a samuel of anastomosis at the proximal transverse colon. The anastomosis demonstrates no abnormality. The re is sigmoid diverticulosis with wall thickening and inflammation involving the mid descending colon centered around an inflamed diverticulum. No abscess or free air is present. There is trace fluid in the pelvis. ABDOMINAL WALL: Within normal limits. RETROPERITONEUM: There is no lymphadenopathy. BLADDER: No wall thickening or mass. REPRODUCTIVE: Prostate gland is mildly enlarged. INGUINAL: There is no lymphadenopathy or hernia. MUSCULOSKELETAL: There are mild degenerative changes of the lumbar spine. Median sternotomy wires are present. CONCLUSION: 1. The above findings are diagnostic of acute sigmoid diverticulitis. The mid sigmoid colon is thicke talha and inflamed. No abscess or free air is present. 2. Severe atherosclerotic disease. Ozzy Coronado MD on October 06, 2017 at 13:49 Board Certified Radiologist. This report was verified electronically.
[2017-10-06] MEDS ORDERED: CIPROFLOXACIN 400 MG PREMIX 200 ML IV ONE (14:00)
[2017-10-06] MEDS ORDERED: metroNIDAZOLE 500 MG INJ 100 ML IV ONE (14:00)
[2017-10-06] MEDS ORDERED: METR-1 PO (14:04)
[2017-10-06] MEDS ORDERED: CIPR-9 PO (14:04)
[2017-10-06] MEDS ORDERED: metroNIDAZOLE 500 MG TAB PO ONE (14:15)
[2017-10-06] MEDS ORDERED: CIPROFLOXACIN 500 MG TAB PO ONE (14:15)
--- NOTE | 2017-10-06 14:21 | PD ---
Physical Exam Date Seen by Provider: October 06, 2017 Time Seen by Provider: 12:50 Narrative I, Dr. Dawson, have reviewed the advance practice practitioner's documentation and am in agreement, met with the patient face to face, made the diagnosis, and the medical decision making was done by me. *My assessment and Findings: Patient seen and evaluated with PA, please see PA notes for further details. Patient coming in with left lower quadrant abdominal pains, similar symptoms to his diverticulitis. Tender palpation in the left lower abdomen, without guarding or rebound. Laboratory Tests Test 10/06/17 11:30 10/06/17 12:15 Neutrophils (%) (Auto) 78.4 % (16.0-70.0) Estimat Glomerular Filtration Rate 65 ML/MIN (>89) Last 24 hours Impressions Abdomen/Pelvis CT 10/06/17 1131 Signed Impressions: Service Date/Time: Friday, October 06, 2017 13:00 - CONCLUSION: 1. The above findings are diagnostic of acute sigmoid diverticulitis. The mid sigmoid colon is thickened and inflamed. No abscess or free air is present. 2. Severe atherosclerotic disease. Ozzy Coronado MD CAT scan does show signs of sigmoid diverticulitis. Patient will be treated for diverticulitis with follow-up to primary care doctor. Return for any worsening in symptoms as necessary. The plan has been discussed with him he states understanding. Data Data Last Documented VS Vital Signs Date Time Temp Pulse Resp B/P (MAP) Pulse Ox O2 Delivery O2 Flow Rate FiO2 10/06/17 11:20 97.5 79 17 162/72 (102) 97 Orders Orders Complete Blood Count With Diff (10/06/17 11:31) Comprehensive Metabolic Panel (10/06/17 11:31) Lipase (10/06/17 11:31) Lactic Acid (10/06/17 11:31) Urinalysis - C+S If Indicated (10/06/17 11:31) Ct Abd/Pel W Iv Contrast(Rout) (10/06/17 11:31) Iv Access Insert/Monitor (10/06/17 11:31) Sodium Chlor 0.9% 1000 Ml Inj (Ns 1000 M (10/06/17 11:31) Iohexol 350 Inj (Omnipaque 350 Inj) (10/06/17 13:03) Metronidazole 500 Mg Inj (Flagyl 500 Mg (10/06/17 14:00) Ciprofloxacin 400 Mg Premix (Cipro 400 M (10/06/17 14:00) Ciprofloxacin (Cipro) (10/06/17 14:15) Metronidazole (Flagyl) (10/06/17 14:15) Ed Discharge Order (10/06/17 14:06) Labs Laboratory Tests Test 10/06/17 11:30 10/06/17 12:15 White Blood Count 9.8 TH/MM3 Red Blood Count 4.55 MIL/MM3 Hemoglobin 14.2 GM/DL Hematocrit 41.0 % Mean Corpuscular Volume 90.0 FL Mean Corpuscular Hemoglobin 31.2 PG Mean Corpuscular Hemoglobin Concent 34.6 % Red Cell Distribution Width 13.1 % Platelet Count 168 TH/MM3 Mean Platelet Volume 7.9 FL Neutrophils (%) (Auto) 78.4 % Lymphocytes (%) (Auto) 12.8 % Monocytes (%) (Auto) 7.3 % Eosinophils (%) (Auto) 1.1 % Basophils (%) (Auto) 0.4 % Neutrophils # (Auto) 7.7 TH/MM3 Lymphocytes # (Auto) 1.3 TH/MM3 Monocytes # (Auto) 0.7 TH/MM3 Eosinophils # (Auto) 0.1 TH/MM3 Basophils # (Auto) 0.0 TH/MM3 CBC Comment DIFF FINAL Differential Comment Blood Urea Nitrogen 7 MG/DL Creatinine 1.10 MG/DL Random Glucose 100 MG/DL Total Protein 7.1 GM/DL Albumin 3.8 GM/DL Calcium Level 9.1 MG/DL Alkaline Phosphatase 73 U/L Aspartate Amino Transf (AST/SGOT) 22 U/L Alanine Aminotransferase (ALT/SGPT) 17 U/L Total Bilirubin 0.7 MG/DL Sodium Level 140 MEQ/L Potassium Level 4.4 MEQ/L Chloride Level 104 MEQ/L Carbon Dioxide Level 28.0 MEQ/L Anion Gap 8 MEQ/L Estimat Glomerular Filtration Rate 65 ML/MIN Lactic Acid Level 1.4 mmol/L Lipase 123 U/L Urine Color YELLOW Urine Turbidity CLEAR Urine pH 7.5 Urine Specific [place] 1.005 Urine Protein NEG mg/dL Urine Glucose (UA) NEG mg/dL Urine Ketones NEG mg/dL Urine Occult Blood TRACE Urine Nitrite NEG Urine Bilirubin NEG Urine Urobilinogen 0.2 MG/DL Urine Leukocyte Esterase NEG Urine RBC LESS THAN 1 /hpf Microscopic Urinalysis Comment CULT NOT INDICATED MDM Medical Record Reviewed: Yes Supervised Visit with CONSTANTINO: Yes Diagnosis Primary Impression: Sigmoid diverticulitis Patient Instructions: General Instructions Departure Forms: Tests/Procedures Additional Instruction: Take medication as prescribed. Drink plenty of fluids. Follow-up with PCP. See ED if worsening symptoms. Scripts Metronidazole (Flagyl) 500 Mg Tab 500 MG PO BID for Infection for 14 Days, #28 TAB 0 Refills Prov: Uzma Dawson MD 10/06/17 Ciprofloxacin (Cipro) 500 Mg Tab 500 MG PO BID for Infection for 14 Days, #28 TAB 0 Refills Prov: Uzma Dawson MD 10/06/17 Disposition: 01 DISCHARGE HOME Condition: Stable Uzma Dawson MD October 06, 2017 14:21
== END 2017-10-06 14:36 | disposition home or self-care (01) ==
LOC: NEPC 11:15
DX: K57.32 Diverticulitis of large intestine without perforation or abscess without bleeding (principal); I10 Essential (primary) hypertension; E78.00 Pure hypercholesterolemia, unspecified; F41.9 Anxiety disorder, unspecified; F32.9 Major depressive disorder, single episode, unspecified; Z85.038 Personal history of other malignant neoplasm of large intestine; Z95.5 Presence of coronary angioplasty implant and graft; Z79.899 Other long term (current) drug therapy
CPT/HCPCS: 74177; 80053; 81001; 83605; 83690; 85025; 96360; 96361; 99284; J7030; Q9967